=== PATIENT | female | born 1965 | race Caucasian/White ===

== ENCOUNTER 2025-05-02 13:48 | Outpatient (CLI) | payer OTHER | END 2025-05-02 13:49 | disposition home or self-care (01) | LOC: MADRAD 13:48 | PROVIDERS: ATTEND Family Medicine | DX: R05.3 Chronic cough (principal) | CPT/HCPCS: 71046 ==

== ENCOUNTER 2025-06-27 13:30 | Outpatient (CLI) | payer OTHER | END 2025-06-27 13:31 | disposition home or self-care (01) | LOC: MADRAD 13:30 | PROVIDERS: ATTEND Student in an Organized Health Care Education/Training Program | DX: M06.4 Inflammatory polyarthropathy (principal); R53.83 Other fatigue; R53.81 Other malaise; Z79.899 Other long term (current) drug therapy; M19.042 Primary osteoarthritis, left hand; M19.041 Primary osteoarthritis, right hand ==